=== PATIENT | male | born 1995 | race African-American/Black ===

== ENCOUNTER 2023-07-28 19:43 | Emergency (ER) | payer SELFPAY ==
[2023-07-28 21:55] LABS: C. TRACHOMATIS BY PCR NOT DETECTED; N. GONORRHOEAE BY PCR NOT DETECTED
== END 2023-07-28 22:05 | disposition home or self-care (01) ==
LOC: MW.ED 19:43
DX: Z20.2 Contact with and (suspected) exposure to infections with a predominantly sexual mode of transmission (principal)
CPT/HCPCS: 87491; 87591; 99283